=== PATIENT | male | born 1990 | race Asian ===

== ENCOUNTER 2020-10-20 21:26 | Emergency (ER) | payer SELFPAY ==
[~2020-10-20] VITALS: Ht 177.8 cm; Wt 95.3 kg
[2020-10-20] MEDS ORDERED: KETOROLAC 30 MG/1 ML IM ONE (22:00)
[2020-10-20] MEDS ORDERED: METHOCARBAMOL 750 MG TABLET PO ONE (22:00)
[2020-10-20] MEDS ORDERED: KETOROLAC 30 MG/1 ML ONE (22:03)
[2020-10-20] MEDS ORDERED: METHOCARBAMOL 750 MG TABLET ONE (22:03)
--- NOTE | 2020-10-20 22:15 | NUR ---
PT MEDICATED FOR PAIN PER EMAR, PT ON CONTNUOS PULSE OX AND CALL LIGHT WITHIN REACH
[2020-10-20 22:32] VITALS: BP 119/54
== END 2020-10-20 22:44 | disposition home or self-care (01) ==
LOC: ED 21:56
DX: S39.012A Strain of muscle, fascia and tendon of lower back, initial encounter (principal); X58.XXXA Exposure to other specified factors, initial encounter; Y93.89 Activity, other specified; Y92.89 Other specified places as the place of occurrence of the external cause; Y99.8 Other external cause status
CPT/HCPCS: 96372; 99283; J1885